=== PATIENT | female | born 1980 | race American Indian/Alaskan Native ===

== ENCOUNTER 2020-08-31 15:18 | Emergency (ER) | payer SELFPAY ==
--- NOTE | 2020-08-31 15:56 | Event Note ---
ED Screening Note ED Screening Note: n/v began last night no diarrhea mild upper abd pain states she has seen blood in her vomit PMHx HIV on antivirals states her CD4 is 700s no allergies to meds occasional ETOH use This initial assessment/diagnostic orders/clinical plan/treatment(s) is/are subject to change based on patients health status, clinical progression and re- assessment by fellow clinical providers in the ED. Further treatment and workup at subsequent clinical providers discretion. Patient/guardian urged not to elope from the ED as their condition may be serious if not clinically assessed and managed. Initial orders include: labs, UA
[2020-08-31 16:24] LABS: Basophils % (Auto) 0.5 % (0.0-1.8); Hemoglobin 13.7 gm/dl (10.1-14.3); Lymphocytes # (Auto) 0.9 K/mm3 (1.2-5.4); Lymphocytes % (Auto) 11.9 % (13.4-35.0); Mean Corpuscular HGB Conc 34 % (30-34); Mean Corpuscular Volume 96 fl (79-97); Monocytes # (Auto) 0.4 K/mm3 (0.0-0.8); Monocytes % (Auto) 4.9 % (0.0-7.3); Platelet Count 279 K/mm3 (140-440); Red Blood Count 4.18 M/mm3 (3.65-5.03); Red Cell Distribution Width 12.9 % (13.2-15.2)
[2020-08-31] MEDS ORDERED: PANTOPRAZOLE 40 MG INJ IV ONE (16:46)
[2020-08-31] MEDS ORDERED: SODIUM CHLORIDE 0.9% 1000 ML 1,000 ML IV ONE (16:46)
[2020-08-31 16:47] LABS: Alanine Aminotransferase 14 units/L (7-56); Albumin 4.7 g/dL (3.9-5); Blood Urea Nitrogen 13 mg/dL (7-17); Calcium 9.6 mg/dL (8.4-10.2); Hemolysis Index 2
[2020-08-31 16:49] LABS: BUN/Creatinine Ratio 19
[2020-08-31 17:16] LABS: INR 1.04 (0.87-1.13)
[2020-08-31 17:17] LABS: Partial Thromboplastin Time 24.4 Sec. (24.2-36.6)
--- NOTE | 2020-08-31 17:22 | XRay Report ---
CHEST 1 VIEW 4:57 PM INDICATION / CLINICAL INFORMATION: Difficulty breathing. COMPARISON: None available. FINDINGS: SUPPORT DEVICES: None. HEART / MEDIASTINUM: The heart size and pulmonary vasculature are normal. LUNGS / PLEURA: No significant pulmonary or pleural abnormality. No pneumothorax. ADDITIONAL FINDINGS: No significant additional findings. IMPRESSION: No acute findings. Signer Name: Etienne Castro MD Signed: 08/31/2020 5:18 PM Workstation Name: [id number]
[2020-08-31 17:30] LABS: Creatine Kinase MB 4.3 ng/mL (0.0-4.0)
[2020-08-31] MEDS ORDERED: ONDANSETRON 4 MG/2 ML INJ IV ONE (17:46)
--- NOTE | 2020-08-31 18:33 | Emergency Department Report ---
ED General Adult HPI - General Chief complaint: GI Bleed Stated complaint: SOB, VOMITING Time Seen by Provider: 08/31/20 15:52 Source: patient Mode of arrival: Wheelchair Limitations: No Limitations - History of Present Illness Initial comments: This is a 40-year-old female who has been vomiting. She had an episode in the waiting room. She was found to be somewhat bradycardic after vomiting and brought back immediately to a monitored bed. I noted that she had a heart rate in the 50s which was not persistent. She was here with her son who stated that she threw up blood. She was really quite lethargic and not answering questions with complete sentences. She did not complain of abdominal pain. She has had no recent fever chills or diarrhea. She denied a history of prior GI bleeding. -: hour(s) Severity scale (0 -10): 0 Improves with: none Associated Symptoms: nausea/vomiting Treatments Prior to Arrival: none - Related Data Previous Rx's Medication Instructions Recorded Last Taken Type Lansoprazole [Prevacid] 30 mg PO DAILY #14 capsule. 08/31/20 Unknown Rx Ondansetron [Zofran Odt] 4 mg PO Q8HR PRN #7 tab.[email or web address] 08/31/20 Unknown Rx Allergies Allergy/AdvReac Type Severity Reaction Status Date / Time No Known Allergies Allergy Unverified 08/31/20 15:48 ED Review of Systems ROS: Stated complaint: SOB, VOMITING Other details as noted in HPI Constitutional: denies: chills, fever Eyes: denies: eye pain, vision change ENT: denies: ear pain, throat pain Respiratory: denies: cough, shortness of breath Cardiovascular: denies: chest pain, palpitations Endocrine: no symptoms reported Gastrointestinal: nausea, vomiting. denies: abdominal pain, diarrhea Genitourinary: denies: urgency, dysuria, discharge Musculoskeletal: denies: back pain, joint swelling, arthralgia Skin: denies: rash, lesions Neurological: denies: headache, weakness, paresthesias Psychiatric: denies: anxiety, depression Hematological/Lymphatic: denies: easy bleeding, easy bruising ED Past Medical Hx - Past Medical History Additional medical history: HIV - Surgical History Additional Surgical History: TUBAL PREG - Social History Smoking Status: Current Every Day Smoker Substance Use Type: Marijuana - Medications Home Medications: Home Medications Medication Instructions Recorded Confirmed Last Taken Type Lansoprazole [Prevacid] 30 mg PO DAILY #14 capsule. 08/31/20 Unknown Rx Ondansetron [Zofran Odt] 4 mg PO Q8HR PRN #7 tab.[email or web address] 08/31/20 Unknown Rx ED Physical Exam - General Limitations: No Limitations General appearance: alert, in no apparent distress - Head Head exam: Present: atraumatic, normocephalic - Eye Eye exam: Present: normal appearance, PERRL, EOMI. Absent: scleral icterus - ENT ENT exam: Present: mucous membranes moist - Neck Neck exam: Present: normal inspection - Respiratory Respiratory exam: Present: normal lung sounds bilaterally. Absent: respiratory distress - Cardiovascular Cardiovascular Exam: Present: regular rate, normal rhythm. Absent: systolic murmur, diastolic murmur, rubs, gallop - GI/Abdominal GI/Abdominal exam: Present: soft, normal bowel sounds - Extremities Exam Extremities exam: Present: normal inspection - Back Exam Back exam: Present: normal inspection - Neurological Exam Neurological exam: Present: alert, oriented X3 - Psychiatric Psychiatric exam: Present: normal affect, normal mood - Skin Skin exam: Present: warm, dry, intact, normal color. Absent: rash ED Course Vital Signs 08/31/20 15:52 Temperature 97.1 F L Pulse Rate 81 Respiratory 20 Rate Blood Pressure 145/103 [Left] O2 Sat by Pulse 99 Oximetry - Reevaluation(s) Reevaluation #1: Patient had no further emesis or really any nausea emergency department. She was given IV fluids. She became less lethargic. She was deemed appropriate for outpatient disposition. 08/31/20 18:37 ED Medical Decision Making - Lab Data Result diagrams: 08/31/20 16:15 08/31/20 16:15 Laboratory Results - last 24 hr 08/31/20 08/31/20 08/31/20 16:15 16:15 16:15 WBC 7.8 RBC 4.18 Hgb 13.7 Hct 40.0 MCV 96 MCH 33 H MCHC 34 RDW 12.9 L Plt Count 279 Lymph % (Auto) 11.9 L Stanley % (Auto) 4.9 Eos % (Auto) 0.0 Baso % (Auto) 0.5 Lymph # (Auto) 0.9 L Stanley # (Auto) 0.4 Eos # (Auto) 0.0 Baso # (Auto) 0.0 Seg Neutrophils % 82.7 H Seg Neutrophils # 6.5 PT INR APTT Sodium 141 Potassium 3.7 Chloride 103.6 Carbon Dioxide 24 Anion Gap 17 BUN 13 Creatinine 0.7 Estimated GFR > 60 BUN/Creatinine Ratio 19 Glucose 89 Calcium 9.6 Magnesium Total Bilirubin 0.40 AST 26 ALT 14 Alkaline Phosphatase 72 Total Creatine Kinase CK-MB (CK-2) CK-MB (CK-2) Rel Index NT-Pro-B Natriuret Pep Total Protein 8.5 H Albumin 4.7 Albumin/Globulin Ratio 1.2 Lipase 14 TSH HCG, Qual Negative Blood Type Antibody Screen 08/31/20 08/31/20 08/31/20 16:48 16:48 16:48 WBC RBC Hgb Hct MCV MCH MCHC RDW Plt Count Lymph % (Auto) Stanley % (Auto) Eos % (Auto) Baso % (Auto) Lymph # (Auto) Stanley # (Auto) Eos # (Auto) Baso # (Auto) Seg Neutrophils % Seg Neutrophils # PT 13.5 INR 1.04 APTT 24.4 Sodium Potassium Chloride Carbon Dioxide Anion Gap BUN Creatinine Estimated GFR BUN/Creatinine Ratio Glucose Calcium Magnesium 2.20 Total Bilirubin AST ALT Alkaline Phosphatase Total Creatine Kinase CK-MB (CK-2) CK-MB (CK-2) Rel Index NT-Pro-B Natriuret Pep Total Protein Albumin Albumin/Globulin Ratio Lipase TSH HCG, Qual Blood Type A POSITIVE Antibody Screen Negative 08/31/20 08/31/20 16:48 17:14 WBC RBC Hgb Hct MCV MCH MCHC RDW Plt Count Lymph % (Auto) Stanley % (Auto) Eos % (Auto) Baso % (Auto) Lymph # (Auto) Stanley # (Auto) Eos # (Auto) Baso # (Auto) Seg Neutrophils % Seg Neutrophils # PT INR APTT Sodium Potassium Chloride Carbon Dioxide Anion Gap BUN Creatinine Estimated GFR BUN/Creatinine Ratio Glucose Calcium Magnesium Total Bilirubin AST ALT Alkaline Phosphatase Total Creatine Kinase 372 H CK-MB (CK-2) 4.3 H CK-MB (CK-2) Rel Index 1.1 NT-Pro-B Natriuret Pep 143.7 Total Protein Albumin Albumin/Globulin Ratio Lipase TSH 1.530 HCG, Qual Blood Type Antibody Screen Critical care attestation.: If time is entered above; I have spent that time in minutes in the direct care of this critically ill patient, excluding procedure time. ED Disposition Clinical Impression: HIV positive Nausea & vomiting Qualifiers: Vomiting type: unspecified Vomiting Intractability: non-intractable Qualified Code(s): R11.2 - Nausea with vomiting, unspecified Disposition: DC-01 TO HOME OR SELFCARE Is pt being admited?: No Does the pt Need Aspirin: No Condition: Stable Instructions: Vomiting, Adult Additional Instructions: Return any acute change or problem. Rx as directed. Follow-up with primary care. Prescriptions: Lansoprazole [Prevacid] 30 mg PO DAILY #14 capsule. Ondansetron [Zofran Odt] 4 mg PO Q8HR PRN #7 tab.rapdis PRN Reason: Nausea Referrals: [facility] [Provider Group] - 3-5 Days Time of Disposition: 18:40
[2020-08-31 18:49] VITALS: BP 119/67
[2020-08-31 19:41] LABS: Free T4 (Free Thyroxine) 1.47 ng/dL (0.76-1.46)
== END 2020-08-31 20:00 | disposition home or self-care (01) ==
LOC: ED 15:18
DX: R75 Inconclusive laboratory evidence of human immunodeficiency virus [HIV] (principal); R11.2 Nausea with vomiting, unspecified; F17.200 Nicotine dependence, unspecified, uncomplicated; F12.10 Cannabis abuse, uncomplicated; Z79.899 Other long term (current) drug therapy
CPT/HCPCS: 36415; 71045; 80053; 82550; 82553; 83690; 83735; 83880; 84439; 84443; 84703; 85025; 85610; 85730; 86850; 86900; 86901; 96361; 96374; 96375; 99284; C9113; J2405; J7030